=== PATIENT | male | born 1995 | race Caucasian/White ===

== ENCOUNTER 2019-07-09 04:46 | Emergency (ER) | payer SELFPAY ==
[2019-07-09] MEDS ORDERED: Sodium Chloride 0.9% 1000 ML 1,000 ML IV STA (05:10)
[2019-07-09] MEDS ORDERED: PROTONIX 40 MG IV IV ONE ×2 (05:10→05:14)
[2019-07-09] MEDS ORDERED: Zofran 4 MG/2 ML VIAL IV ONE (05:10)
[2019-07-09] MEDS ORDERED: Zofran 4 MG/2 ML VIAL ONE (05:14)
[2019-07-09] MEDS ORDERED: Sodium Chloride 0.9% 1000 ML 1,000 ML ONE (05:14)
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
[2019-07-09 05:25] LABS: Absolute Neutrophil Ct (ANC) 6.06 (1.4-6.9); BASOPHIL % 0.1 % (0.0-0.4); Basophil (Absolute #) 0.01 (0-0.4); Eosinophil % 2.6 % (0.00-5.0); Eosinophil (Absolute #) 0.23 (0-0.5); Hematocrit 46.9 % (42-50); Hemoglobin 16.8 gm/dl (12.5-18.0); Lymphocyte (Absolute #) 1.75 (1.0-4.6); Lymphocytes % 19.8 % (24.0-44.0); Mean Cell Volume 89.5 fl (78-100); Mean Corpuscular Hemoglobin 32.1 pg (26-32); Mean Corpuscular Hgb Concent. 35.8 g/dl (32-36); Mean Platelet Volume 9.4 fl (7.5-11.0); Monocyte (Absolute #) 0.81 (0.0-1.3); Monocytes % 9.1 % (0.0-12.0); Neutrophil % 68.4 % (36.0-66.0); Platelet Count 205 K/mm3 (150-450); Red Blood Count 5.24 M/mm3 (4.1-5.6); Red Cell Distribution Width 12.8 % (11.5-14.0); White Blood Count 8.9 K/mm3 (4.0-10.5)
[2019-07-09 05:40] LABS: ALBUMIN 4.9 g/dL (3.5-5.0); ALKALINE PHOSPHATASE 72 U/L (38-126); ANION GAP 12.6 MEQ/L (5-15); BLOOD UREA NITROGEN 12 mg/dL (9-20); CHLORIDE 105 mmol/L (98-107); Calcium 9.6 mg/dL (8.4-10.2); Carbon Dioxide 27 mmol/L (22-30); Creatinine 1 0.73 mg/dL (0.66-1.25); Direct Bilirubin 0.1 mg/dL (0.0-0.4); Glucose 107 mg/dL (74-106); LIPASE 93 U/L (23-300); Potassium 3.8 mmol/L (3.5-5.1); SGOT/AST 47 U/L (17-59); SGPT/ALT 42 U/L (0-50); SODIUM 140 mmol/L (137-145); Total Protein 8.3 g/dL (6.3-8.2)
[2019-07-09 06:53] VITALS: BP 124/66; PULSE 100
[2019-07-10 15:52] VITALS: O2SAT 99
== END 2019-07-09 06:53 | disposition home or self-care (01) ==
LOC: ED 04:46
DX: R10.13 Epigastric pain (principal)
CPT/HCPCS: 36000; 36415; 80048; 80076; 83690; 85025; 93005; 96360; 96374; 96375; 99284; J2405

== ENCOUNTER 2024-02-22 20:56 | Emergency (ER) | payer BC ==
[2024-02-22 22:16] VITALS: TEMP 98.2
[2024-02-22 23:09] VITALS: BP 128/73; PULSE 86; RESP 18; O2SAT 97
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
== END 2024-02-22 23:22 | disposition home or self-care (01) ==
LOC: ED 20:56
DX: S01.81XA Laceration without foreign body of other part of head, initial encounter (principal); W20.8XXA Other cause of strike by thrown, projected or falling object, initial encounter; W27.8XXA Contact with other nonpowered hand tool, initial encounter; I10 Essential (primary) hypertension; Z79.899 Other long term (current) drug therapy
CPT/HCPCS: 12002; 99282